=== PATIENT | female | born 1985 ===

== ENCOUNTER 2018-08-10 08:49 | Emergency (ER) | payer OTHER ==
[2018-08-10 10:24] VITALS: BP 110/63
--- NOTE | 2018-08-10 11:06 | Emergency Department Report ---
ED Female HPI - General Chief complaint: Abdominal Pain Stated complaint: BLEEDING FOR 2 WEEKS Source: patient Mode of arrival: Ambulatory Limitations: Language Barrier - History of Present Illness Initial comments: This is a 32-year-old female who presents to the emergency room with pelvic pain and heavy vaginal bleeding for 2 weeks. Last menstrual period started on 07/27/2018, A1 miscarriage. Patient states she is passing heavy clots and bleeding very heavily. The lower abdominal pain is a cramping sensation that is intermittent. Patient states cramping to lower abdomen started last Friday. She is sexually active with one partner her spouse. She denies urinary frequency, urgency, dysuria. MD Complaint: vaginal bleeding, pelvic pain Onset/Timin -: week(s) Location: suprapubic Radiation: non-radiating Severity: mild Severity scale (0 -10): 4 Quality: cramping Consistency: constant Improves with: none Worsens with: menstrual period Are you Now?: No Last Menstrual Period: 07/27/18 EDC: 05/03/19 Associated Symptoms: vaginal bleeding, abdominal pain. denies: vaginal discharge, nausea/vomiting, fever/chills, headaches, loss of appetite, dysuria, hematuria, rash, seizure, shortness of breath, syncope, weakness - Related Data Sexually active: Yes : 3 Para: 2 A: 1 (miscarriage) Previous Rx's Medication Instructions Recorded Last Taken Type medroxyPROGESTERone ACETATE 10 mg PO DAILY #10 tablet 08/10/18 Unknown Rx [Medroxyprogesterone Acetate] Allergies Allergy/AdvReac Type Severity Reaction Status Date / Time No Known Allergies Allergy Unverified 08/10/18 08:50 ED Review of Systems ROS: Stated complaint: BLEEDING FOR 2 WEEKS Other details as noted in HPI Constitutional: denies: chills, fever Respiratory: denies: cough, shortness of breath, wheezing Cardiovascular: denies: chest pain, palpitations Gastrointestinal: abdominal pain. denies: nausea, diarrhea Genitourinary: abnormal menses. denies: urgency, dysuria, discharge Musculoskeletal: denies: back pain, joint swelling, arthralgia Skin: denies: rash, lesions Neurological: denies: headache, weakness, paresthesias Psychiatric: denies: anxiety, depression ED Past Medical Hx - Past Medical History Previous Medical History?: No - Surgical History Past Surgical History?: No - Social History Smoking Status: Never Smoker Substance Use Type: None - Medications Home Medications: Home Medications Medication Instructions Recorded Confirmed Last Taken Type medroxyPROGESTERone ACETATE 10 mg PO DAILY #10 tablet 08/10/18 Unknown Rx [Medroxyprogesterone Acetate] ED Physical Exam - General Limitations: Language Barrier General appearance: alert, in no apparent distress, obese - Respiratory Respiratory exam: Present: normal lung sounds bilaterally. Absent: respiratory distress - Cardiovascular Cardiovascular Exam: Present: regular rate, normal rhythm. Absent: systolic murmur, diastolic murmur, rubs, gallop - GI/Abdominal GI/Abdominal exam: Present: soft, tenderness (suprapubic tenderness), normal bowel sounds. Absent: distended, guarding, rebound, rigid, organomegaly, mass, bruit, pulsatile mass - Back Exam Back exam: Absent: CVA tenderness (R), CVA tenderness (L) - Neurological Exam Neurological exam: Present: alert, oriented X3 - Psychiatric Psychiatric exam: Present: normal affect, normal mood - Skin Skin exam: Present: warm, dry, intact, normal color. Absent: rash ED Course Vital Signs 08/10/18 10:21 Temperature 98.0 F Pulse Rate 64 Respiratory 20 Rate Blood Pressure 110/63 O2 Sat by Pulse 99 Oximetry ED Medical Decision Making - Lab Data Result diagrams: 08/10/18 13:46 Lab Results 08/10/18 08/10/18 Range/Units 11:30 13:46 WBC 5.3 (4.5-11.0) K/mm3 RBC 4.65 (3.65-5.03) M/mm3 Hgb 13.0 (10.1-14.3) gm/dl Hct 39.3 (30.3-42.9) % MCV 85 (79-97) fl MCH 28 (28-32) pg MCHC 33 (30-34) % RDW 14.6 (13.2-15.2) % Plt Count 297 (140-440) K/mm3 Urine Color Yellow (Yellow) Urine Turbidity Clear (Clear) Urine pH 8.0 H (5.0-7.0) Ur Specific [place] 1.008 (1.003-1.030) Urine Protein <15 mg/dl (Negative) mg/dL Urine Glucose (UA) Neg (Negative) mg/dL Urine Ketones Tr (Negative) mg/dL Urine Blood Lg (Negative) Urine Nitrite Neg (Negative) Urine Bilirubin Neg (Negative) Urine Urobilinogen < 2.0 (<2.0) mg/dL Ur Leukocyte Esterase Neg (Negative) Urine WBC (Auto) 13.0 H (0.0-6.0) /HPF Urine RBC (Auto) 92.0 (0.0-6.0) /HPF U Epithel Cells (Auto) 3.0 (0-13.0) /HPF Urine Bacteria (Auto) 1+ (Negative) /HPF Urine HCG, Qual Negative (Negative) - Radiology Data Radiology results: report reviewed PROCEDURE: US TRANSVAGINAL TECHNIQUE: Real-time transabdominal sonography in multiple planes of the pelvis was performed. The pelvic structures were not optimally visualized. Transvaginal sonography was then performed to better evaluate the structures and/or abnormalities described below with image documentation. HISTORY: suprapubic tenderness COMPARISONS: None . FINDINGS: UTERUS Size: 8.2 x 3.7 x 5.4 cm. Endometrial thickness: 10 mm. Orientation: anteverted. Cervix: Normal. Fibroids/masses: None. RIGHT Ovary: 4.4 x 2.2 x 3.9 cm. Appearance: Normal. LEFT Ovary: 3.6 x 2.3 x 3.6 cm. Appearance: Normal. A dominant left ovarian follicle is seen measuring 1.5 cm. Pelvic fluid: None. IMPRESSION: Normal Examination. - Medical Decision Making Patient was examined by me. Vitals are normal and patient is in no acute distress. Obtained a CBC, UA, and hCG. US of pelvic obtained and dictated by radiologist and normal. Labs where unremarkable, negative , normal H/H, large amount of blood and mild elevation of WBCs on UA. Findings are susceptible of dysfunctional uterine bleeding. Start medroxyprogesterone 10 mg po daily x 5-10 days, 0 refills. Referral to [facility] for continued care. Patient informed of results. Plan discussed with patient to discharge home and treat outpatient. She agrees with ER plan. Patient discharged home in stable condition. Follow up with PCP in 2-3 days. Critical care attestation.: If time is entered above; I have spent that time in minutes in the direct care of this critically ill patient, excluding procedure time. ED Disposition Clinical Impression: Vaginal bleeding between periods, Dysfunctional uterine bleeding, Pelvic pain Menorrhagia Qualifiers: Menorrahagia type: with irregular cycle Qualified Code(s): N92.1 - Excessive and frequent menstruation with irregular cycle Disposition: TO HOME OR SELFCARE Is pt being admited?: No Does the pt Need Aspirin: No Condition: Stable Instructions: Abdominal Pain (ED), Dysfunctional Uterine Bleeding (ED) Additional Instructions: Follow up with [facility] for continued care. Prescriptions: medroxyPROGESTERone ACETATE [Medroxyprogesterone Acetate] 10 mg PO DAILY #10 tablet Referrals: [facility] QU[facility] [Primary Care Provider] - 3-5 Days [facility] [Provider Group] - 3-5 Days [facility] [Provider Group] - 3-5 Days Time of Disposition: 14:49 Print Language: [place]
[2018-08-10 11:46] LABS: Bacteria,Urine 1+ /HPF (Negative); Bilirubin,Urine NEG (Negative); Blood,Urine LG (Negative); Color,Urine Yellow (Yellow); Protein,Urine <15 mg/dL mg/dL (Negative); Urobilinogen,Urine < 2.0 mg/dL (<2.0)
[2018-08-10 11:51] LABS: HCG Qualitative,Urine Negative (Negative)
[2018-08-10 13:55] LABS: Hematocrit 39.3 % (30.3-42.9); Mean Corpuscular HGB Conc 33 % (30-34); Mean Corpuscular Volume 85 fl (79-97); Platelet Count 297 K/mm3 (140-440); Red Blood Count 4.65 M/mm3 (3.65-5.03); Red Cell Distribution Width 14.6 % (13.2-15.2)
--- NOTE | 2018-08-10 14:37 | Ultrasound Report ---
PROCEDURE: US TRANSVAGINAL TECHNIQUE: Real-time transabdominal sonography in multiple planes of the pelvis was performed. The p elvic structures were not optimally visualized. Transvaginal sonography was then performed to better evaluate the structures and/or abnormalities described below with image documentation. HISTORY: suprapubic tenderness COMPARISONS: None . FINDINGS: UTERUS Size: 8.2 x 3.7 x 5.4 cm. Endometrial thickness: 10 mm. Orientation: anteverted. Cervix: Normal. Fibroids/masses: None. RIGHT Ovary: 4.4 x 2.2 x 3.9 cm. Appearance: Normal. LEFT Ovary: 3.6 x 2.3 x 3.6 cm. Appearance: Normal. A dominant left ovarian follicle is seen measuring 1.5 cm. Pelvic fluid: None. IMPRESSION: Normal Examination. This document is electronically signed by Leona Sandoval., August 10 2018 02:33:53 PM ET
--- NOTE | 2018-08-10 14:37 | Ultrasound Report ---
PROCEDURE: US PELVIC COMPLETE TECHNIQUE: Real-time transabdominal sonography in multiple planes of the pelvis was performed. The p elvic structures were not optimally visualized. Transvaginal sonography was then performed to better evaluate the structures and/or abnormalities described below with image documentation. HISTORY: suprapubic tenderness COMPARISONS: None . FINDINGS: UTERUS Size: 8.2 x 3.7 x 5.4 cm. Endometrial thickness: 10 mm. Orientation: anteverted. Cervix: Normal. Fibroids/masses: None. RIGHT Ovary: 4.4 x 2.2 x 3.9 cm. Appearance: Normal. LEFT Ovary: 3.6 x 2.3 x 3.6 cm. Appearance: Normal. A dominant left ovarian follicle is seen measuring 1.5 cm. Pelvic fluid: None. IMPRESSION: Normal Examination. This document is electronically signed by Leona Sandoval., August 10 2018 02:34:25 PM ET
== END 2018-08-10 15:02 | disposition home or self-care (01) ==
LOC: ED 08:49
DX: N92.0 Excessive and frequent menstruation with regular cycle (principal); N93.8 Other specified abnormal uterine and vaginal bleeding; N92.3 Ovulation bleeding
CPT/HCPCS: 36415; 76830; 76856; 81001; 81025; 85027